=== PATIENT | male | born 1985 | race Caucasian/White ===

== ENCOUNTER 2017-06-06 09:32 | Emergency (ER) | payer OTHER ==
[~2017-06-06] VITALS: Ht 182.9 cm; Wt 64.0 kg
[~2017-06-06 09:32] MED LIST: ASPI325T39 PO; [UNRECOGNIZED DRUG - OTHER] PO
[2017-06-06 09:37] VITALS: TEMP 36.6; Ht 182.9 cm; Wt 64.0 kg
[2017-06-06 10:16] LABS: BASO % 0.5 %; BASO ABS # 0.03 K/uL (0-0.2); COMPLETE YES; EOS % 2.1 %; IG% 0.3 %; LYMPH % 32.1 %; LYMPH ABS # 1.87 K/uL (1.2-3.4); MEAN CELL VOLUME 87.8 fL (80-100); MEAN CORPUSCULAR HEMOGLOBIN 29.9 pg (25-34); MEAN CORPUSCULAR HGB CONC 34.1 g/dl (32-36); MEAN PLATELET VOLUME 10.7 fL (7.4-10.4); MONO % 7.5 %; NEUT % 57.5 %; PLATELET COUNT 167 K/uL (130-400); RED BLOOD COUNT 5.01 M/uL (4.7-6.1); WHITE BLOOD COUNT 5.83 K/uL (4.8-10.8)
--- NOTE | 2017-06-06 10:25 | DIAGNOSTIC IMAGING REPORT ---
CHEST ONE VIEW PORTABLE CLINICAL HISTORY: Atypical chest pain, fever, sepsis. COMPARISON STUDY: 05/01/2016 FINDINGS: The cardiac and mediastinal contours are normal. There is no evidence of focal pulmonary consolidation. There is no evidence of failure. No pleural effusions are visualized.[ IMPRESSION: No active disease in the chest. Electronically signed by: Geoffrey Johnston M.D. 06/06/2017 10:24 AM Dictated Date/Time: 06/06/2017 10:24 AM
[2017-06-06 10:37] LABS: BLOOD UREA NITROGEN 12 mg/dl (7-18); BUN/CREATININE RATIO 14.1 (10-20); CALCIUM 9.1 mg/dl (8.5-10.1); CARBON DIOXIDE 30 mmol/L (21-32); CHLORIDE 106 mmol/L (98-107); CREATININE 0.87 mg/dl (0.60-1.40); GLUCOSE 84 mg/dl (70-99); POTASSIUM 3.8 mmol/L (3.5-5.1); SODIUM 140 mmol/L (136-145)
[2017-06-06 10:42] LABS: ALKALINE PHOSPHATASE 59 U/L (45-117); ALT/SGPT 23 U/L (12-78); AST/SGOT 19 U/L (15-37)
[2017-06-06 11:00] VITALS: BP 104/64; PULSE 69; O2SAT 99
--- NOTE | 2017-06-06 12:29 | EMERGENCY ROOM VISIT NOTE ---
History Report prepared by Scribeli: Damian Dotson Under the Supervision of: Dr. Dae Bradshaw D.O. First contact with patient: 09:45 Chief Complaint: CHEST PAIN Stated Complaint: CHEST PAIN Nursing Triage Summary: patient c/o chest pain started about 40 mins ago. pain is sharp in nature and is worse with movement. History of Present Illness The patient is a 31 year old male who presents to the Emergency Room with complaints of resolved right chest pain beginning one hour ago. He rates his pain as a 5/10 in severity, but states that is worsens to a 10/10 with movement. His pain is also worsened with breathing. The patient describes his pain as "sharp". He notes that he does a lot of heavy lifting at work, but denies any specific instances of straining or injury. His pain began while at work today. The patient also complains of epigastric abdominal pain. He denies any cough, SOB, calf pain, nausea, vomiting, or diarrhea. He denies any recent prolonged travel. Source of History: patient Onset: one hour ago Position: chest (right) Quality: sharp Timing: resolved Modifying Factors (Worsening): breathing, movement Associated Symptoms: No cough, No SOB, No nausea, No vomiting, No diarrhea Note: The patient denies any calf pain. Review of Systems See HPI for pertinent positives & negatives. A total of 10 systems reviewed and were otherwise negative. Past Medical & Surgical Medical Problems: (1) Constipation Family History Blood clots Social History Smoking Status: Never Smoker Alcohol Use: none Housing Status: lives alone Occupation Status: employed Current/Historical Medications No Active Prescriptions or Reported Meds Allergies Coded Allergies: Penicillins (Verified Allergy, Unknown, hives, 06/06/17) Physical Exam Vital Signs Date Time Temp Pulse Resp B/P (MAP) Pulse Ox O2 Delivery O2 Flow Rate FiO2 06/06/17 11:00 69 16 104/64 99 Room Air 06/06/17 10:01 65 06/06/17 09:47 98 Room Air 06/06/17 09:37 36.6 70 20 97 Room Air Physical Exam CONSTITUTIONAL/VITAL SIGNS: Reviewed / noted above. GENERAL: Non-toxic in appearance. INTEGUMENTARY: Warm, dry, and [place]. HEAD: Normocephalic. EYES: without scleral icterus or trauma. ENT/OROPHARYNX: clear and moist. LYMPHADENOPATHY/NECK: Is supple without lymphadenopathy or meningismus. RESPIRATORY: Lungs clear and equal. CARDIOVASCULAR: Regular rate and rhythm. GI/ABDOMEN: Soft and nontender. No organomegaly or pulsatile mass. No rebound or guarding. Normal bowel sounds. EXTREMITIES: Warm and well perfused. BACK: No CVA tenderness. NEUROLOGICAL: Intact without focal deficits. PSYCHIATRIC: normal affect. MUSCULOSKELETAL: Normally developed with good muscle tone. Medical Decision & Procedures ER Provider Diagnostic Interpretation: X ray results and stated below per my interpretation and radiology interpretation. CHEST ONE VIEW PORTABLE FINDINGS: The cardiac and mediastinal contours are normal. There is no evidence of focal pulmonary consolidation. There is no evidence of failure. No pleural effusions are visualized.[ IMPRESSION: No active disease in the chest. Electronically signed by: Geoffrey Johnston M.D. 06/06/2017 10:24 AM Laboratory Results 06/06/17 09:59 Red Blood Count 5.01, Mean Corpuscular Volume 87.8, Mean Corpuscular Hemoglobin 29.9, Mean Corpuscular Hemoglobin Concent 34.1, Mean Platelet Volume 10.7, Neutrophils (%) (Auto) 57.5, Lymphocytes (%) (Auto) 32.1, Monocytes (%) (Auto) 7.5, Eosinophils (%) (Auto) 2.1, Basophils (%) (Auto) 0.5, Neutrophils # (Auto) 3.35, Lymphocytes # (Auto) 1.87, Monocytes # (Auto) 0.44, Eosinophils # (Auto) 0.12, Basophils # (Auto) 0.03 06/06/17 09:59 Test 06/06/17 09:59 White Blood Count 5.83 K/uL (4.8-10.8) Red Blood Count 5.01 M/uL (4.7-6.1) Hemoglobin 15.0 g/dL (14.0-18.0) Hematocrit 44.0 % (42-52) Mean Corpuscular Volume 87.8 fL (80-100) Mean Corpuscular Hemoglobin 29.9 pg (25-34) Mean Corpuscular Hemoglobin Concent 34.1 g/dl (32-36) Platelet Count 167 K/uL (130-400) Mean Platelet Volume 10.7 fL (7.4-10.4) Neutrophils (%) (Auto) 57.5 % Lymphocytes (%) (Auto) 32.1 % Monocytes (%) (Auto) 7.5 % Eosinophils (%) (Auto) 2.1 % Basophils (%) (Auto) 0.5 % Neutrophils # (Auto) 3.35 K/uL (1.4-6.5) Lymphocytes # (Auto) 1.87 K/uL (1.2-3.4) Monocytes # (Auto) 0.44 K/uL (0.11-0.59) Eosinophils # (Auto) 0.12 K/uL (0-0.5) Basophils # (Auto) 0.03 K/uL (0-0.2) RDW Standard Deviation 39.6 fL (36.4-46.3) RDW Coefficient of Variation 12.4 % (11.5-14.5) Immature Granulocyte % (Auto) 0.3 % Immature Granulocyte # (Auto) 0.02 K/uL (0.00-0.02) D-Dimer 400 ug/L FEU (0-500) Anion Gap 5.0 mmol/L (3-11) Est Creatinine Clear Calc Drug Dose 109.3 ml/min Estimated GFR () 131.4 Estimated GFR (Non- 113.4 BUN/Creatinine Ratio 14.1 (10-20) Calcium Level 9.1 mg/dl (8.5-10.1) Total Bilirubin 1.4 mg/dl (0.2-1) Direct Bilirubin 0.3 mg/dl (0-0.2) Aspartate Amino Transf (AST/SGOT) 19 U/L (15-37) Alanine Aminotransferase (ALT/SGPT) 23 U/L (12-78) Alkaline Phosphatase 59 U/L (45-117) Troponin I < 0.015 ng/ml (0-0.045) Total Protein 7.6 gm/dl (6.4-8.2) Albumin 4.3 gm/dl (3.4-5.0) Laboratory results as stated above per my review. ECG Indication: chest pain Rate (beats per minute): 63 Rhythm: normal sinus Findings: no acute ischemic change, no ectopy ED Course 0946: Previous medical records were reviewed. The patient was evaluated in room B2. A complete history and physical examination was performed. 1010: On reevaluation, the patient is resting comfortably. I discussed the results and findings with the patient. He verbalized agreement of the treatment plan. He was discharged home. Medical Decision The differential was considered includes acute myocardial infarction, acute coronary syndrome, myocarditis, pericarditis, pericardial effusions/tamponade, esophageal perforation, thoracic aortic dissection, pulmonary embolism, pneumonia, pneumothorax, pancreatitis, shingles, acute cholecystitis, perforated abdominal viscus. This is a 31-year-old male who presents to the ED with a chief complaint of right-sided chest discomfort. The patient's symptoms started just prior to arrival. He describes the sharp is intermittent. The patient states that his symptoms were worse with movement. Shortly after arriving here, his symptoms totally resolved. They were not reproducible and he was pain-free. The patient denies any exertional symptoms. The patient denies any upper respiratory symptoms cough or shortness of breath. His vital signs are stable. Physical exam was normal. Chest x-ray is negative for acute disease. CBC is normal, troponin and d-dimer are negative. EKG shows normal sinus rhythm. The patient was told the results of the test. The patient was felt to be stable for discharge and outpatient follow-up. Impression Primary Impression: Chest wall pain Scribe Attestation The scribe's documentation has been prepared under my direction and personally reviewed by me in its entirety. I confirm that the note above accurately reflects all work, treatment, procedures, and medical decision making performed by me. Departure Information Dispostion Home / Self-Care Prescriptions No Active Prescriptions or Reported Meds Referrals Karson Sanchez M.D. (PCP) Forms HOME CARE DOCUMENTATION FORM, IMPORTANT VISIT INFORMATION Patient Instructions Chest Pain - [facility], [facility] Additional Instructions You came into today to be evaluated for chest pain. All our test were shown to be normal: chest x ray, blood work and EKG. You need to follow up with your PCP. If you experience severe symptoms: increased chest pain, shortness of breathe, fever, please follow up sooner.
--- NOTE | 2017-06-06 13:10 | EMERGENCY ROOM VISIT NOTE ---
History First contact with patient: 09:45 Chief Complaint: CHEST PAIN Stated Complaint: CHEST PAIN Nursing Triage Summary: patient c/o chest pain started about 40 mins ago. pain is sharp in nature and is worse with movement. History of Present Illness The patient is a 31 year old male who presents to the Emergency Room with complaints of chest pain since this morning at work -Pt describes right sided sharp, knife like pain in the lateral chest wall. -Pt says that the pain is worse with movement and and deep inspiration. He says that the pain has been ongoing since 9 am this morning. -Pt says that since he has been in the ED the pain has dissipated. -Pt describes heavy lifting at work, but denies any injury. Pt also denies ever having the pain before. -Pt denies cough, SOB, hemoptysis or recent URI. -Pt denies lower extremity pain, swelling. Pt denies recent periods of immobility. -When asked pt described vague epigastric pain. Pt denies N/V/D. -Pt lives alone, is employed. Pt does not smoke, drink Etoh or use illicit drugs. Pt is not currently sexually active. No sexual partners in the past year. -Pt describes a Fmhx of factor V leiden. Pt says that he has been tested in the past and describes that he was negative. Review of Systems see below Constitutional: No fever, No chills Respiratory: No cough, No sputum, No wheezing, No shortness of breath, No dyspnea on exertion, No hemoptysis Cardiovascular: No chest pain, No orthopnea Abdomen: + pain, No nausea, No vomiting, No diarrhea Musculoskeletal: No joint pain, No muscle pain Past Medical/Surgical History Medical Problems: (1) Constipation Family History Blood clots Mother is positive for factor V Leiden Social History Smoking Status: Never Smoker Alcohol Use: none Housing Status: lives alone Occupation Status: employed Current/Historical Medications No Active Prescriptions or Reported Meds Physical Exam Vital Signs Date Time Temp Pulse Resp B/P (MAP) Pulse Ox O2 Delivery O2 Flow Rate FiO2 06/06/17 11:00 69 16 104/64 99 Room Air 06/06/17 10:01 65 06/06/17 09:47 98 Room Air 06/06/17 09:37 36.6 70 20 97 Room Air Physical Exam see below General Appearance: WD/WN, no apparent distress Head: normocephalic, atraumatic Eyes: normal inspection, PERRL, EOMI Neck: supple, no adenopathy Respiratory/Chest: chest non-tender, lungs clear, normal breath sounds, no respiratory distress, no accessory muscle use Cardiovascular: regular rate, rhythm, no edema, no gallop, no JVD, no murmur , normal peripheral pulses Abdomen / GI: normal bowel sounds, non tender, soft Extremities: normal inspection, no calf tenderness, no pedal edema Medical Decision & Procedures Laboratory Results 06/06/17 09:59 Red Blood Count 5.01, Mean Corpuscular Volume 87.8, Mean Corpuscular Hemoglobin 29.9, Mean Corpuscular Hemoglobin Concent 34.1, Mean Platelet Volume 10.7, Neutrophils (%) (Auto) 57.5, Lymphocytes (%) (Auto) 32.1, Monocytes (%) (Auto) 7.5, Eosinophils (%) (Auto) 2.1, Basophils (%) (Auto) 0.5, Neutrophils # (Auto) 3.35, Lymphocytes # (Auto) 1.87, Monocytes # (Auto) 0.44, Eosinophils # (Auto) 0.12, Basophils # (Auto) 0.03 06/06/17 09:59 Test 06/06/17 09:59 White Blood Count 5.83 K/uL (4.8-10.8) Red Blood Count 5.01 M/uL (4.7-6.1) Hemoglobin 15.0 g/dL (14.0-18.0) Hematocrit 44.0 % (42-52) Mean Corpuscular Volume 87.8 fL (80-100) Mean Corpuscular Hemoglobin 29.9 pg (25-34) Mean Corpuscular Hemoglobin Concent 34.1 g/dl (32-36) Platelet Count 167 K/uL (130-400) Mean Platelet Volume 10.7 fL (7.4-10.4) Neutrophils (%) (Auto) 57.5 % Lymphocytes (%) (Auto) 32.1 % Monocytes (%) (Auto) 7.5 % Eosinophils (%) (Auto) 2.1 % Basophils (%) (Auto) 0.5 % Neutrophils # (Auto) 3.35 K/uL (1.4-6.5) Lymphocytes # (Auto) 1.87 K/uL (1.2-3.4) Monocytes # (Auto) 0.44 K/uL (0.11-0.59) Eosinophils # (Auto) 0.12 K/uL (0-0.5) Basophils # (Auto) 0.03 K/uL (0-0.2) RDW Standard Deviation 39.6 fL (36.4-46.3) RDW Coefficient of Variation 12.4 % (11.5-14.5) Immature Granulocyte % (Auto) 0.3 % Immature Granulocyte # (Auto) 0.02 K/uL (0.00-0.02) D-Dimer 400 ug/L FEU (0-500) Anion Gap 5.0 mmol/L (3-11) Est Creatinine Clear Calc Drug Dose 109.3 ml/min Estimated GFR () 131.4 Estimated GFR (Non- 113.4 BUN/Creatinine Ratio 14.1 (10-20) Calcium Level 9.1 mg/dl (8.5-10.1) Total Bilirubin 1.4 mg/dl (0.2-1) Direct Bilirubin 0.3 mg/dl (0-0.2) Aspartate Amino Transf (AST/SGOT) 19 U/L (15-37) Alanine Aminotransferase (ALT/SGPT) 23 U/L (12-78) Alkaline Phosphatase 59 U/L (45-117) Troponin I < 0.015 ng/ml (0-0.045) Total Protein 7.6 gm/dl (6.4-8.2) Albumin 4.3 gm/dl (3.4-5.0) Medical Decision 31 yo male presented with right chest wall tenderness. Pt received an a work-up Pt chest pain has resolved. The pain is positional. Pt could have experienced a muscle strain. Pt can be discharged with follow-up with PCP Impression Primary Impression: Chest wall pain Departure Information Dispostion Home / Self-Care Condition GOOD Prescriptions No Active Prescriptions or Reported Meds Referrals Karson Sanchez M.D. (PCP) Patient Instructions Chest Pain - [facility], [facility] Additional Instructions After performing test in the ER today: chest x ray, blood work and EKG. We have determined that your labs and test to be normal. At this time, we would like you to follow-up with your primary care doctor in the outpatient setting. Please follow-up sooner if the pain returns or worsens. Please do not hesitate to seek medical help if you develop more severe chest pain, trouble breathing, fever, or vomiting. Work Instructions Return To Work: 1 day Lifting Limitations: none
== END 2017-06-06 11:25 | disposition home or self-care (01) ==
LOC: C.EDB 09:34
DX: R07.89 Other chest pain (principal); R10.13 Epigastric pain